=== PATIENT | female | born 2000 | race Caucasian/White ===

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

== ENCOUNTER 2020-05-05 23:09 | Outpatient (CLI) | payer OTHER ==
[2020-05-05 23:24] LABS: BILIRUBIN NEGATIVE (NEGATIVE); GLUCOSE NEGATIVE (NEGATIVE); KETONE NEGATIVE (NEGATIVE); NITRITE NEGATIVE (NEGATIVE); UROBILINOGEN NORMAL (NORMAL)
== END 2020-05-06 00:15 | disposition home or self-care (01) ==
LOC: D.LDO 23:09 → D.LD 23:26 → D.LDO 05-06 00:15
PROVIDERS: ATTEND Obstetrics & Gynecology
DX: O26.899 Other specified pregnancy related conditions, unspecified trimester (principal); M54.9 Dorsalgia, unspecified

== ENCOUNTER 2020-05-18 20:10 | Inpatient (IN) | payer OTHER ==
[~2020-05-18] VITALS: Ht 167.6 cm; Wt 75.5 kg
[2020-05-18 20:52] VITALS: BP 116/78; Ht 167.6 cm; Wt 75.5 kg
[2020-05-18 21:11] LABS: HEMATOCRIT 32.7 % (36.0-48.0); HEMOGLOBIN 10.3 g/dL (12-16); MCH 24.9 pg (26.0-34.0); MCHC 31.5 g/dL (31.0-37.0); MCV 79.2 fL (80.0-100.0); MEAN PLATELET VOLUME 10.4 fL (7.4-10.4); RBC 4.13 10x6/uL (4.00-5.40); RDW 13.2 % (11.5-14.5); WBC 12.9 10x3/uL (4.8-10.8)
[2020-05-18 21:49] LABS: BACTERIA MANY /hpf (NONE SEEN); BILIRUBIN NEGATIVE (NEGATIVE); EPITHELIAL CELLS 0-5 /hpf (0-5); KETONE NEGATIVE (NEGATIVE); NITRITE NEGATIVE (NEGATIVE); RED CELLS - URINE 0-5 /hpf (0-5); UROBILINOGEN NORMAL (NORMAL); WHITE CELLS - URINE 0-5 /hpf (0-5)
[2020-05-19 18:58] VITALS: BP 132/68
--- NOTE | 2020-05-19 18:58 | NUR ---
RN TO PT BEDSIDE FOR ROUNDING, PT DENIES ANY PAIN AT THIS TIME, IV TO LEFT HAND PATENT, LR INFUSING AT THIS TIME. PT WITH IN ARMS BONDING AT THIS TIME. POC DISCUSSED WITH PT, WILL HELP PT AMBULATE WITHIN THE NEXT 30 MINUTES, PT VERBALIZES UNDERASTANDING OF POC. BED IN LOWEST POSITION, SIDE RAILS UPX2, CALL LIGHT IN REACH.
--- NOTE | 2020-05-19 20:34 | NUR ---
RN TO PT BEDSIDE, EPIDURAL CATHETER REMOVED, BLACK TIP INTACT, LR D/C'D, PT ASSISTED TO BATHROOM, PT VOIDED 375ML TO URINE HAT AT THIS TIME, NO CLOTS SEEN. PT PROVIDED NEW GOWN, PERIPADS, AND BRIEFS. PER PT REQUEST SHE DOES NOT WANT TO RETURN STRAIGHT TO BED AT THIS TIME. FOB AT BEDSIDE, BED IN LOWEST POSITION, SIDE RAILS UPX2, CALL LIGHT IN REACH.
--- NOTE | 2020-05-19 21:30 | NUR ---
RECEIVED REPORT FROM JARRED PUTNAM RN
--- NOTE | 2020-05-19 21:43 | NUR ---
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
--- NOTE | 2020-05-19 22:00 | NUR ---
PT TRANSFERRED VIA AMB TO ROOM [id number] WITH ALL BELONGINGS, INFANT IN OPEN CRIB CART PER CHINA DIOP RN, AND FOB, PT ORIENTED TO ROOM, BED IN LOW POSITION, SIDE RAILS X 2, CALL LIGHT IN REACH
--- NOTE | 2020-05-19 22:52 | NUR ---
PT LOOKING AT CELL PHONE, RATES PAIN 02/23, INST PT TO LET ME KNOW WHEN SHE NEEDS TO GET UP TO BR AND THAT I WILL BRING HER AN ICE PACK, AND DERMAPLAST, PT VERBALIZES UNDERSTANDING, DENIES NEEDS, FOB BOTTLE FEEDING INFANT, REQUESTS NSY NURSE TO ROOM, INFORMED PT THAT I WILL LET THEM KNOW
--- NOTE | 2020-05-19 23:48 | NUR ---
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
--- NOTE | 2020-05-20 00:22 | NUR ---
PT AWAKE, HOLDING INFANT, RATES EARL PAIN 2/10, DENIES NEEDS AT THIS TIME
--- NOTE | 2020-05-20 01:38 | NUR ---
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
--- NOTE | 2020-05-20 02:00 | NUR ---
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
--- NOTE | 2020-05-20 04:27 | NUR ---
PT AWAKE, FOB HOLDING , PT DENIES NEEDS OR PAIN AT THIS TIME
--- NOTE | 2020-05-20 06:13 | NUR ---
PT RESTING WITH EYES CLOSED, RESP QUIET, NO DISTRESS NOTED, LEFT UNDISTURBED AT THIS TIME, FOB ASLEEP ON COUCH
--- NOTE | 2020-05-20 07:00 | NUR ---
SHIFT REPORT TO DAY SHIFT
[2020-05-20 07:14] LABS: RAPID PLASMA REAGIN Non Reactive (Non Reactive)
[2020-05-20 07:24] VITALS: BP 108/56
--- NOTE | 2020-05-20 07:31 | NUR ---
ASSESSMENT COMPLETE. RESTING IN BED. STATES IS GOING TO BATHROOM WITHOUT PROBLEMS. STATES HAS SHOWERED. FUNDUS U2/FIRM. SCANT LOCHIA NOTED ON PAD. CO CRAMPING AND RATES PAIN A 7 ON SCALE OF 0-10.
[2020-05-20 07:32] LABS: HEMATOCRIT 27.6 % (36.0-48.0); HEMOGLOBIN 8.8 g/dL (12-16); MCH 25.4 pg (26.0-34.0); MCHC 31.9 g/dL (31.0-37.0); MCV 79.5 fL (80.0-100.0); MEAN PLATELET VOLUME 10.2 fL (7.4-10.4); RBC 3.47 10x6/uL (4.00-5.40); RDW 13.4 % (11.5-14.5)
[2020-05-20 08:00] LABS: WBC 17.6 10x3/uL (4.8-10.8)
--- NOTE | 2020-05-20 10:35 | NUR ---
UP AND ABOUT IN ROOM. STATES SHE WOULD LIKE TO GO HOME THIS EVENING.
[2020-05-20 13:33] VITALS: BP 113/64
--- NOTE | 2020-05-20 15:16 | NUR ---
REQUESTING PAIN MEDICATION- RATES PAIN AN 8 ON SCALE OF 0-10. MED GIVEN.
--- NOTE | 2020-05-20 15:19 | NUR ---
SALINE LOCK REMOVED- CATH TIP INTACT. BANDAIDE APPLIED.
--- NOTE | 2020-05-20 16:11 | NUR ---
DISCHARGE INST VERBAL AND WRITTEN GIVEN. NO SCRIPTS FOR PT. PFW POST INST GIVEN. AWHONN GUIDELINES SHEET GIVEN. SEE ALSO SIGNED INSTRUCTION SHEET. PT HEALTH SUMMARY GIVEN. DENIES QUESTIONS AT THIS TIME.
--- NOTE | 2020-05-20 16:52 | MORECARE ---
CASE MANAGEMENT DISCHARGE SUMMARY PATIENT: PUMA BRANCH UNIT: [id number] ADM DATE: 05/18/20 AGE: 19 : 00 SEX: F ROOM/BED: D.1273 AUTHOR: AMBER SOTO PHYSICIAN: REFERRING PHYSICIAN: HERNANDEZ TAPIA MD DATE OF SERVICE: 05/20/20 Discharge Plan Patient Name: PUMA BRANCH Facility: [facility]:[place] : [address] Planned Disposition: Home Anticipated Discharge Date: 05/20/20 Discharge Date: Expected LOS: 2 Initial Reviewer: [email or web address] Initial Review Date: 05/18/2020 Generated: 05/20/20 5:52 pm Patient Name: PUMA BRANCH Page [id number] at 1652 All edits/amendments must be made on the electronic document DICTATION DATE: 05/20/201651 HIGH LIFT OPERATOR: JUNAID 05/20/201651 RPT#: [id number] DC DATE: STATUS: ADM IN [facility] [address] [place] [address] END OF REPORT
[2020-05-20 16:55] VITALS: BP 105/57
--- NOTE | 2020-05-20 17:01 | MORECARE ---
CASE MANAGEMENT DISCHARGE SUMMARY PATIENT: PUMA BRANCH UNIT: [id number] ADM DATE: 05/18/20 AGE: 19 : 00 SEX: F ROOM/BED: D.1273 AUTHOR: AMBER SOTO PHYSICIAN: REFERRING PHYSICIAN: HERNANDEZ TAPIA MD DATE OF SERVICE: 05/20/20 Discharge Plan Patient Name: PUMA BRANCH Facility: [facility]:[place] : [address] Planned Disposition: Home Anticipated Discharge Date: 05/20/20 Discharge Date: Expected LOS: 2 Initial Reviewer: [email or web address] Initial Review Date: 05/18/2020 Generated: 05/20/20 6:01 pm Last DP export: 05/20/20 3:52 pm Patient Name: PUMA BRANCH Page [id number] at 1701 All edits/amendments must be made on the electronic document DICTATION DATE: 05/20/201700 AUTOMOBILE SERVICE ADVISOR: JUNAID 05/20/201700 RPT#: [id number] DC DATE: STATUS: ADM IN [facility] [address] [place] [address] END OF REPORT
--- NOTE | 2020-05-20 17:23 | NUR ---
UP AND ABOUT IN ROOM- DENIES NEEDS.
--- NOTE | 2020-05-20 18:15 | NUR ---
RESTING IN ROOM- DENIES NEEDS.
--- NOTE | 2020-05-20 18:50 | NUR ---
REPORT TO PM SHIFT.
--- NOTE | 2020-05-20 19:07 | NUR ---
PT DISCHARGED VIA HOME WITH INFANT AND FAMILY MEMBER PER BAO BABCOCK RN, PT HAS ALL BELONGINGS AND DISCHARGE PAPERWORK
--- NOTE | 2020-05-20 19:10 | NUR ---
D/C TO [facility] VIA WC W/ FAMILY MEMBER TO HOME
== END 2020-05-20 19:07 | disposition home or self-care (01) | DRG 807 ==
LOC: D.LD 20:10
PROVIDERS: ADMIT Obstetrics & Gynecology; ATTEND Obstetrics & Gynecology
PROC: 10E0XZZ Delivery of Products of Conception, External Approach (ICD-10-PCS; principal; 2020-05-19)
PROC: 0HQ9XZZ Repair Perineum Skin, External Approach (ICD-10-PCS; 2020-05-19)
DX: O70.0 First degree perineal laceration during delivery (principal); Z37.0 Single live birth; Z3A.39 39 weeks gestation of pregnancy